=== PATIENT | male | born 1970 | race Caucasian/White ===

== ENCOUNTER 2021-04-24 12:30 | Inpatient (IN) | payer SELFPAY ==
[~2021-04-24] VITALS: Ht 157.5 cm; Wt 111.6 kg
[2021-04-24] MEDS ORDERED: MORPHINE SULFATE 4 MG/ML CPJ (NOT FOR IM USE) IV STA (12:38)
[2021-04-24] MEDS ORDERED: ONDANSETRON HCL 4MG/2ML INJ IV STA (12:38)
[2021-04-24] MEDS ORDERED: NITROGLYCERIN OINT 1GM/INCH UDPKT TD ONE (12:45)
[2021-04-24] MEDS ORDERED: ASPIRIN 81MG TABLET PO ONE (12:45)
[2021-04-24 13:07] LABS: BASOPHILS % 1.2 % (0.0-2.0); EOSINOPHILS % 5.5 % (0.0-5.0); HEMATOCRIT. 49.5 % (42.0-52.0); HEMOGLOBIN. 16.3 g/dL (14.0-18.0); LYMPHOCYTES % 33.1 % (20.0-50.0); MEAN CORPUSCULAR HEMOGLOBIN 26.2 pg (28.0-32.0); MEAN CORPUSCULAR VOLUME 79.6 fL (80.0-94.0); MEAN PLATELET VOLUME 9.5 fl (7.4-10.4); NEUTROPHILS % 48.2 % (40.0-76.0); PLATELET 247 x1000/uL (130-400); RED BLOOD CELL COUNT 6.22 mill/uL (4.7-6.1); RED CELL DISTRIBUTION WIDTH 14.5 % (11.6-14.6)
[2021-04-24 13:13] LABS: CHLORIDE 100 mEq/L (98-107)
[2021-04-24] MEDS ORDERED: AZITHROMYCIN 500MG/250ML 250 ML IV ONE (13:15)
[2021-04-24] MEDS ORDERED: CEFTRIAXONE 1 G PREMIX 50 ML IV ONE (13:15)
[2021-04-24] MEDS ORDERED: LABETALOL 5MG/ML SYR 20 MG/4 ML SYRINGE IV ONE (13:30)
[2021-04-24] MEDS ORDERED: ALBUTEROL (0.083%) 2.5MG/3ML NEB HHN STA (13:37)
[2021-04-24] MEDS ORDERED: IPRATROPIUM BROMIDE (0.02%) 0.5MG/2.5ML NEB HHN STA (13:37)
[2021-04-24] MEDS ORDERED: INSULIN REGULAR (HUMULIN R) 300UNITS/3ML VIAL IV ONE (13:45)
[2021-04-24] MEDS ORDERED: ENOXAPARIN 120MG/0.8ML SYR SUBCUT ONE (13:45)
[2021-04-24] MEDS ORDERED: HYDRALAZINE 20MG/ML VIAL IV PRN (14:00)
[2021-04-24] MEDS: AMLODIPINE 10MG TABLET PO SCH (14:15)
[2021-04-24] MEDS ORDERED: DEXTROSE 50% WATER 50ML SYRINGE IV PRN (15:30)
[2021-04-24] MEDS ORDERED: INSULIN GLARGINE UD 100 UNITS/ML SYR SUBCUT NR (15:30)
[2021-04-24] MEDS: CARVEDILOL 6.25 MG TABLET PO SCH ×2 (16:27→21:00)
[2021-04-24] MEDS ORDERED: INSULIN REGULAR (HUMULIN R) 300UNITS/3ML VIAL IV NR (16:30)
[2021-04-24] MEDS: BLOOD SUGAR DIAGNOSTIC STRIP TEST SCH ×2 (17:00→21:36)
[2021-04-24] MEDS ORDERED: MORPHINE SULFATE 2 MG/ML CPJ (NOT FOR IM USE) IV PRN (18:30)
[2021-04-24] MEDS: INSULIN LISPRO 100 UNITS/ML SUBCUT SCH ×2 (21:00→21:35)
[2021-04-24] MEDS ORDERED: ATORVASTATIN CALCIUM 40MG TABLET PO SCH (21:00)
[2021-04-24 21:43] LABS: *AMPHETAMINES SCREEN URINE NEGATIVE (NEGATIVE); *BARBITURATES SCREEN URINE NEGATIVE (NEGATIVE); CANNABINOID URINE SCREEN PRESUMTIVE POSITIVE (NEGATIVE)
[2021-04-24 21:44] LABS: *COCAINE SCREEN URINE NEGATIVE (NEGATIVE); METHADONE URINE SCREEN NEGATIVE (NEGATIVE); OPIATES URINE SCREEN PRESUMTIVE POSITIVE (NEGATIVE); PHENCYCLIDINE URINE SCREEN NEGATIVE (NEGATIVE)
[2021-04-24 21:58] LABS: *BENZODIAZEPINES SCREEN URINE PRESUMTIVE POSITIVE (NEGATIVE)
[2021-04-25] VITALS (19 sets, daily range): BP systolic 115–143; BP diastolic 72–102
[2021-04-25] MEDS: TRAMADOL 50MG TABLET PO PRN ×2 (02:44→09:07)
[2021-04-25] MEDS ORDERED: METF-874 MT (03:00)
[2021-04-25] MEDS ORDERED: GLIP5TAB12 PO (03:00)
[2021-04-25] MEDS ORDERED: ALPR1TAB2 PO (03:00)
[2021-04-25] MEDS ORDERED: LOSA50TA41 PO (03:00)
[2021-04-25] MEDS ORDERED: LIP40 MT (03:00)
[2021-04-25] MEDS ORDERED: INSU100I28 SQ (03:00)
[2021-04-25] MEDS: BLOOD SUGAR DIAGNOSTIC STRIP TEST SCH ×3 (06:21→17:53)
[2021-04-25 06:31] LABS: BASOPHILS % 1.1 % (0.0-2.0); EOSINOPHILS % 6.3 % (0.0-5.0); HEMATOCRIT. 46.4 % (42.0-52.0); HEMOGLOBIN. 15.5 g/dL (14.0-18.0); LYMPHOCYTES % 35.4 % (20.0-50.0); MEAN CORPUSCULAR HEMOGLOBIN 26.5 pg (28.0-32.0); MEAN CORPUSCULAR VOLUME 79.5 fL (80.0-94.0); MEAN PLATELET VOLUME 9.1 fl (7.4-10.4); MONOCYTES % 9.7 % (2.0-8.0); NEUTROPHILS % 47.5 % (40.0-76.0); PLATELET 224 x1000/uL (130-400); RED BLOOD CELL COUNT 5.84 mill/uL (4.7-6.1); RED CELL DISTRIBUTION WIDTH 14.6 % (11.6-14.6)
[2021-04-25 06:42] LABS: CHLORIDE 102 mEq/L (98-107)
[2021-04-25] MEDS: INSULIN LISPRO 100 UNITS/ML SUBCUT SCH ×3 (07:20→18:03)
[2021-04-25] MEDS ORDERED: HEPARIN SODIUM 1,000 UNIT/1ML VIAL IV ONE (07:47)
[2021-04-25] MEDS: AMLODIPINE 10MG TABLET PO SCH (09:03)
[2021-04-25] MEDS: CARVEDILOL 6.25 MG TABLET PO SCH (09:05)
[2021-04-25] MEDS ORDERED: NALOXONE HCL 0.4MG/ML VIAL IV PRN ×2 (11:30→15:00)
[2021-04-25] MEDS ORDERED: FENTANYL CITRATE/PF 50MCG/ML 2ML VIAL ONE (12:23)
[2021-04-25] MEDS ORDERED: MIDAZOLAM HCL 2 MG/2 ML VIAL ONE (12:23)
[2021-04-25] MEDS ORDERED: LIDOCAINE HCL 1% 30ML VIAL (10MG/ML) ONE (12:23)
[2021-04-25] MEDS ORDERED: VERAPAMIL HCL 2.5 MG/1 ML 2ML VIAL IV ONE (12:24)
[2021-04-25] MEDS ORDERED: IODIXANOL 320MG/ML 100 ML BOTTLE IV ONE (12:24)
[2021-04-25] MEDS ORDERED: DIPHENHYDRAMINE 50MG/ML VIAL ONE (12:39)
[2021-04-25] MEDS ORDERED: FUROSEMIDE 40MG/4ML VIAL ONE (13:25)
[2021-04-25] MEDS ORDERED: ACETAMINOPHEN 325MG TABLET PO PRN (14:30)
[2021-04-25] MEDS ORDERED: ATROPINE SULFATE 1MG/10ML SYR IV PRN (14:30)
[2021-04-25] MEDS ORDERED: FUROSEMIDE 40MG/4ML VIAL IVP SCH (18:00)
[2021-04-26] MEDS ORDERED: SPIRONOLACTONE 25MG TABLET PO SCH (09:00)
== END 2021-04-25 20:56 | disposition left against medical advice (07) | DRG 190 ==
LOC: ER 12:30 → MICUSO 13:44 → EDBEDREQTM 13:49 → EDBEDREQ 13:49 → 3WST 04-25 01:14
PROVIDERS: ADMIT Internal Medicine; ATTEND Internal Medicine
PROC: 4A023N7 Measurement of Cardiac Sampling and Pressure, Left Heart, Percutaneous Approach (ICD-10-PCS; principal; 2021-04-25)
PROC: B211YZZ Fluoroscopy of Multiple Coronary Arteries using Other Contrast (ICD-10-PCS; 2021-04-25)
DX: I21.4 Non-ST elevation (NSTEMI) myocardial infarction (principal); I50.21 Acute systolic (congestive) heart failure; E44.1 Mild protein-calorie malnutrition; E87.1 Hypo-osmolality and hyponatremia; E11.65 Type 2 diabetes mellitus with hyperglycemia; I11.0 Hypertensive heart disease with heart failure; E78.5 Hyperlipidemia, unspecified; E66.01 Morbid (severe) obesity due to excess calories; F12.90 Cannabis use, unspecified, uncomplicated; Z20.822 Contact with and (suspected) exposure to COVID-19; I25.10 Atherosclerotic heart disease of native coronary artery without angina pectoris; Z53.29 Procedure and treatment not carried out because of patient's decision for other reasons; I16.1 Hypertensive emergency; Z68.42 Body mass index [BMI] 45.0-49.9, adult; Z82.49 Family history of ischemic heart disease and other diseases of the circulatory system; Z87.442 Personal history of urinary calculi; Z91.14 Patient's other noncompliance with medication regimen; Z86.16 Personal history of COVID-19
CPT/HCPCS: 36415; 71045; 80048; 80053; 80305; 82962; 83605; 83880; 84484; 85025; 87426; 93005; 93306; 93458; 94640; 99291; C1769; C1887; C1893; J0456; J0696; J1200; J1644; J1650; J1815; J1940; J2250; J2270; J2405; J3010; J3490; Q9967